=== PATIENT | male | born 1985 ===

== ENCOUNTER 2018-05-18 11:13 | Emergency (ER) | payer OTHER ==
[2018-05-18 11:37] VITALS: BMI 27.1
[2018-05-18 11:39] VITALS: BP 110/68; PULSE 74; RESP 20; TEMP 98.4; O2SAT 98
--- NOTE | 2018-05-18 13:07 | ED PDOC ---
HPI: Back Time Seen by Provider: 05/18/18 12:16 Chief Complaint (Nursing): Back Pain Chief Complaint (Provider): Back Pain History Per: Patient History/Exam Limitations: no limitations Onset/Duration Of Symptoms: Days Current Symptoms Are (Timing): Still Present Additional Complaint(s): Patient is a 32 y/o male with no significant PMHx who presents to the ED for evaluation of new onset mid, lower back pain ongoing for the past two to three weeks. 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 The patient denies any recent falls or trauma. Patient has been taking Naproxen and Cyclobenzaprine for relief. PCP: None Provided Past Medical History Reviewed: Historical Data, Nursing Documentation, Vital Signs Vital Signs: Last Vital Signs Temp 98.4 F 05/18/18 11:38 Pulse 74 05/18/18 11:38 Resp 20 05/18/18 11:38 BP 110/68 05/18/18 11:38 Pulse Ox 98 05/18/18 11:38 - Medical History PMH: No Chronic Diseases - Surgical History Surgical History: No Surg Hx - Family History Family History: States: No Known Family Hx - Home Medications Home Medications: Ambulatory Orders Medication Instructions Recorded Cyclobenzaprine [Flexeril] 10 mg PO TID #27 tab 05/18/18 Diclofenac Potassium 50 mg PO BID #20 tablet 05/18/18 - Allergies Allergies/Adverse Reactions: Allergies Allergy/AdvReac Type Severity Reaction Status Date / Time No Known Allergies Allergy Verified 05/18/18 11:41 Review of Systems ROS Statement: Except As Marked, All Systems Reviewed And Found Negative Musculoskeletal: Positive for: Back Pain (Mid, Lower) Physical Exam - Reviewed Nursing Documentation Reviewed: Yes Vital Signs Reviewed: Yes - Physical Exam Appears: Positive for: No Acute Distress Head Exam: Positive for: ATRAUMATIC, NORMAL INSPECTION, NORMOCEPHALIC Skin: Positive for: Normal Color Eye Exam: Positive for: Normal appearance Neck: Positive for: Normal Cardiovascular/Chest: Positive for: Regular Rate, Rhythm Respiratory: Positive for: Normal Breath Sounds (Bilaterally). Negative for: Decreased Breath Sounds, Respiratory Distress Gastrointestinal/Abdominal: Positive for: Normal Exam Back: Positive for: Normal Inspection, Decreased ROM (Limited Back Flexion on Straight Leg Raise ). Negative for: L CVA Tenderness, R CVA Tenderness, Vertebral Tenderness Extremity: Positive for: Normal ROM (Upper/Lower) Neurologic/Psych: Positive for: Alert, Oriented - ECG O2 Sat by Pulse Oximetry: 98 (RA) Pulse Ox Interpretation: Normal Medical Decision Making Medical Decision Making: Time: 1227 Plan: Lumbar Spine Complete [Rad] Decadron Inj 10 mg IM Flexeril 10 mg PO Toradol 60 mg IM [Tylenol 325 Tab] 650 mg PO Time: 1355 Patients Lumbar Spine X-Ray shows joint spaces are maintained. No sign of DJD. Scribe Attestation: Documented by Partha Lewis, acting as a scribe for Christos PENDLETON. Provider Scribe Attestation: All medical record entries made by the Scribe were at my direction and personally dictated by me. I have reviewed the chart and agree that the record accurately reflects my personal performance of the history, physical exam, medical decision making, and the department course for this patient. I have also personally directed, reviewed, and agree with the discharge instructions and disposition. Disposition - Clinical Impression Clinical Impression: Back strain, Low back pain - Disposition Referrals: [facility] [Outside] [facility] [Outside] Disposition Time: 14:06 Condition: STABLE Prescriptions: Cyclobenzaprine [Flexeril] 10 mg PO TID #27 tab Diclofenac Potassium 50 mg PO BID #20 tablet Instructions: Muscle Strain, Muscle Strain (DC) Forms: Xand (Israeli), Xand (Estonian) Print Language: ARMENIAN
--- NOTE | 2018-05-18 16:26 | RAD ---
Date of service: 05/18/2018 PROCEDURE: Radiographs of the Lumbar Spine. HISTORY: new onset lower back pain COMPARISON: No prior. FINDINGS: BONES: Normal alignment. No listhesis. No fracture. DISC SPACES: Unremarkable. OTHER FINDINGS: None. IMPRESSION: Unremarkable radiographs of the lumbar spine. Concordant results with the preliminary interpretation rendered by the emergency department physician procedure.
== END 2018-05-18 14:19 | disposition home or self-care (01) ==
LOC: H.ER 11:13
DX: S39.012A Strain of muscle, fascia and tendon of lower back, initial encounter (principal); X50.9XXA Other and unspecified overexertion or strenuous movements or postures, initial encounter; Y99.0 Civilian activity done for income or pay
CPT/HCPCS: 72114; 96372; 99282; J1100; J1885